=== PATIENT | female | born 1995 | race African-American/Black ===

== ENCOUNTER 2021-05-18 22:43 | Emergency (ER) | payer OTHER, MEDICAID ==
[~2021-05-18] VITALS: Ht 160 cm; Wt 72.6 kg
[2021-05-18 22:47] VITALS: BP 134/77
== END 2021-05-19 02:03 | disposition left against medical advice (07) ==
LOC: ER 22:43
DX: N64.52 Nipple discharge (principal); N64.4 Mastodynia; Z53.21 Procedure and treatment not carried out due to patient leaving prior to being seen by health care provider

== ENCOUNTER 2022-12-05 18:50 | Observation (INO) | payer OTHER, MEDICAID ==
[~2022-12-05] VITALS: Ht 160 cm; Wt 83.9 kg
[2022-12-05] MEDS ORDERED: PREN-96 PO (19:40)
== END 2022-12-05 23:05 | disposition home or self-care (01) ==
LOC: LDRP 18:50
PROVIDERS: ADMIT Obstetrics & Gynecology; ATTEND Obstetrics & Gynecology
DX: O26.892 Other specified pregnancy related conditions, second trimester (principal); R10.9 Unspecified abdominal pain; R51.9 Headache, unspecified; O62.9 Abnormality of forces of labor, unspecified; Z3A.26 26 weeks gestation of pregnancy
CPT/HCPCS: 59025; 76815; 81002; 94760; G0378